=== PATIENT | male | born 1940 | race Two or more races ===

== ENCOUNTER 2018-06-17 12:40 | Outpatient (CLI) | payer OTHER ==
[~2018-06-17 12:40] MED LIST: AMBIEN10 MG PO; CIPRO750 MG PO; Colace 100MG PO; INTRINSI B12-F1 EACH PO; NEURONTIN PO; PERCOCET 5/3251 TAB PO; SIMVASTATIN20 MG PO; TRAM1TAB98 PO
== END 2018-06-17 13:07 | disposition home or self-care (01) ==
LOC: RAD 501 12:40
DX: M48.07 Spinal stenosis, lumbosacral region (principal); Z98.1 Arthrodesis status